=== PATIENT | female | born 1955 | race Caucasian/White ===

== ENCOUNTER → 2021-08-09 | Outpatient (CLI) | payer BC ==
[2021-08-11 15:10] LABS: HPV 16 Negative (Negative); HPV 18 Negative (Negative); HPV OTHER HR TYPES Negative (Negative)
== END ==
LOC: LAB SHORT 12:00 → LAB 12:00
PROVIDERS: Registered Nurse Community Health
DX: Z12.4 Encounter for screening for malignant neoplasm of cervix (principal)
CPT/HCPCS: 87624; G0123

== ENCOUNTER 2024-06-23 08:01 | Day surgery (SDC) | payer MEDICARE, BC ==
[~2024-06-23] VITALS: Ht 170.2 cm; Wt 79.3 kg
[2024-06-23] VITALS (15 sets, daily range): BP systolic 109–163; BP diastolic 75–93
[~2024-06-23 08:01] MED LIST: ATOR20 PO; BUSP10 PO; CELEXA40 M9 PO; Prinivil10 MG PO
[2024-06-23] MEDS ORDERED: Lactated Ringer's 1,000 ML IV SCH (08:30)
--- NOTE | 2024-06-23 08:53 | NUR ---
PT TO DAY SURGERY FOR COLONOSCOPY. CHART REVIEWED. PLAN OF CARE DISCUSSED WITH PT. QUESTIONS ANSWERED. PT HAS RIDE HOME PLANNED.
[2024-06-23] MEDS ORDERED: propofoL 40 ML IV ONE (09:22)
[2024-06-23] MEDS ORDERED: Midazolam HCl 1MG / ML 2ML Vial ONE (09:26)
--- NOTE | 2024-06-23 09:48 | NUR ---
06/23/24 0948 Edwige Ocampo HISTORY, CHART, MEDICATIONS AND ALLERGIES REVIEWED BEFORE START OF PROCEDURE. PATIENT CONFIRMS NPO STATUS AND AGREES WITH SCHEDULED PROCEDURE. 3-LEAD EKG REVIEWED WITH PHYSICIAN PRIOR TO START OF PROCEDURE. MONITOR INTACT WITH CONTINUOUS PULSE OXIMETRY,CAPNOGRAPHY, 3-LEAD EKG, INTERMITTENT BP. SUPPLEMENTAL O2 TO BE TITRATED THROUGHOUT PROCEDURE TO MAINTAIN O2 SATURATION ABOVE 90%. PATIENT DETERMINED TO BE ASA APPROPRIATE FOR PROPOFOL SEDATION PRIOR TO START OF PROCEDURE BY
--- NOTE | 2024-06-23 10:10 | NUR ---
REPORT RECEIVED FROM WANDA WHITE. PT ON RA. VSS. PT A&OX4. PT ABLE TO REPOSITION SELF IN BED. PT REQUESTING PO FLUIDS AND TOLERATING THEM WELL. PT DENIES PAIN, NAUSEA OR OTHER DISCOMFORTS.
--- NOTE | 2024-06-23 10:36 | NUR ---
Patient up to Ambulate independently. Gait steady. VSS AND CONSISTENT WITH PT BASELINE. PT HAS NO COMPLAINTS AND VERBALIZES READINESS TO GO HOME. Discharge instructions reviewed with patient. Patient verbalizes understanding. Copy given to patient to take home. Discharged via wheelchair to private car for ride home. PT BELONGINGS RETURNED TO PT.
== END 2024-06-23 10:37 | disposition home or self-care (01) ==
LOC: ORSCMMR 08:01 → ORD 09:00 → ORSCMMR 09:00
PROVIDERS: Internal Medicine Gastroenterology
PROC: 0DBN8ZX Excision of Sigmoid Colon, Via Natural or Artificial Opening Endoscopic, Diagnostic (ICD-10-PCS; principal; 2024-06-23 09:00)
DX: Z12.11 Encounter for screening for malignant neoplasm of colon (principal); Z86.010 Personal history of colon polyps; K63.5 Polyp of colon; F32.A Depression, unspecified; I10 Essential (primary) hypertension; E78.00 Pure hypercholesterolemia, unspecified; Z79.899 Other long term (current) drug therapy
CPT/HCPCS: 88305; J2250; J2704; J7120

== ENCOUNTER 2025-04-12 06:41 | Day surgery (SDC) | payer MEDICARE, BC ==
[~2025-04-12] VITALS: Ht 170.2 cm; Wt 77.8 kg
[2025-04-12] VITALS (23 sets, daily range): BP systolic 104–152; BP diastolic 68–106
[~2025-04-12 06:41] MED LIST changes: +Lactated Ringer's 1,000 ML IV SCH
--- NOTE | 2025-04-12 07:32 | NUR ---
History, Chart, Medications and Allergies reviewed before start of procedure. Pre-Op teaching done. Pt verbalizes understanding. Ambulatory in Day Surgery. Patient States Post-Procedure ride home has been arranged. Patient confirms NPO status and agrees with scheduled surgery.
[2025-04-12] MEDS ORDERED: propofoL 40 ML IV ONE (08:42)
--- NOTE | 2025-04-12 08:57 | NUR ---
04/12/25 0857 Olu Armas CONFIRMED AND REVIEWED H&P, MEDCICATIONS, ALLERGIES, MEDICAL HISTORY, RESPIRATORY HISTORY, VITAL SIGNS, 3-LEAD EKG, CONSENTS, AND PHYSICIAN ORDERS. PATIENT CONFIRMS NPO STATUS AND AGREES WITH SCHEDULED PROCEDURE. MONITOR INTACT WITH CONTINUOUS PULSE OXIMETRY, CAPNOGRAPHY, 3-LEAD EKG, INTERMITTENT BP. SUPPLEMENTAL O2 TO BE TITRATED THROUGHOUT PROCEDURE TO MAINTAIN O2 SATURATION ABOVE 90%. PATIENT DETERMINED TO BE ASA APPROPRIATE FOR PROPOFOL SEDATION PRIOR TO START OF PROCEDURE BY DR. SALEH
[2025-04-12] MEDS ORDERED: Midazolam HCl 1MG / ML 2ML Vial ONE (08:59)
--- NOTE | 2025-04-12 09:53 | NUR ---
Discharge instructions reviewed with patient. Patient verbalizes understanding. Copy given to patient to take home. Pt up to change with steady gait. Discharged via wheelchair to private car for ride home.
== END 2025-04-12 22:00 | disposition home or self-care (01) ==
LOC: ORSCMMR 06:41 → ORD 08:00 → ORSCMMR 22:00
PROVIDERS: Internal Medicine Gastroenterology
PROC: 0DBN8ZX Excision of Sigmoid Colon, Via Natural or Artificial Opening Endoscopic, Diagnostic (ICD-10-PCS; principal; 2025-04-12 08:00)
DX: Z09 Encounter for follow-up examination after completed treatment for conditions other than malignant neoplasm (principal); K63.5 Polyp of colon; I10 Essential (primary) hypertension; F32.A Depression, unspecified; Z80.0 Family history of malignant neoplasm of digestive organs; Z79.899 Other long term (current) drug therapy
CPT/HCPCS: 88305; J2250; J2704; J7120

== ENCOUNTER → 2025-07-07 | Outpatient (CLI) | payer MEDICARE, BC ==
[~2025-07-07] MED LIST changes: -Lactated Ringer's 1,000 ML IV SCH
== END ==
LOC: LAB 16:05 → LAB SHORT 16:05
DX: R30.0 Dysuria (principal)
CPT/HCPCS: 87077; 87086; 87186